=== PATIENT | female | born 1950 | race Caucasian/White ===

== ENCOUNTER 2017-01-14 11:16 | Emergency (ER) | payer BC ==
[~2017-01-14] VITALS: Ht 170.2 cm; Wt 63.0 kg
--- OUTSIDE RECORDS SUMMARY | 2017-01-14 11:20 | XMS REPORT | Summary of Care ---
Author Author Wendy Godfrey M.D. Organization Unknown Address Unknown Phone Unavailable Care Team Providers Care Rn Perioperative Name Role Phone Epifanio Garner, Joseph Unavailable Unavailable Alcides Suarez Unavailable Unavailable Unavailable Unavailable Functional Status Name Dates Details Functional status health issues are not documented Status: Name Dates Details Cognitive status health issues are not documented Status: Problems Name Dates Details Allergic rhinitis due to pollen (477.0, J30.1) Status: Active Other chronic sinusitis (473.8, J32.8) Status: Active GERD (gastroesophageal reflux disease) (530.81, K21.9) Status: Active Moderate persistent asthma, uncomplicated (493.90, J45.40) Status: Active CVID (common 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, D83.9) Status: Active Tremors of nervous system (781.0, R25.1) Status: Active Medications Name Dates Details Gamunex INJ Active Thyroid TABS * Refills: 0 Active Propranolol HCl - 40 MG Oral Tablet * Refills: 0 Active FLUoxetine HCl - 20 MG Oral Capsule * Refills: 0 Active Adderall 10 MG Oral Tablet * Refills: 0 Active Diclofenac Sodium 75 MG Oral Tablet Delayed Release * Refills: 0 Active Lovastatin 20 MG Oral Tablet * Refills: 0 Active BuPROPion HCl ER (XL) 300 MG Oral Tablet Extended Release 24 Hour * Refills: 0 Active SEROquel 100 MG Oral Tablet * Refills: 0 Active Multi Vitamin/Minerals Oral Tablet * Refills: 0 Active [place] 3 CAPS * Refills: 0 Active Glucosamine TABS * Refills: 0 Active Vitamin D CAPS * Refills: 0 Active Probiotic CAPS * Refills: 0 Active Vitamin E 1000 UNIT Oral Capsule * Refills: 0 Active Mucinex 600 MG Oral Tablet Extended Release 12 Hour * Refills: 0 Active Pantoprazole Sodium 20 MG Oral Tablet Delayed Release TAKE ONE TABLET BY MOUTH DAILY 30 MINUTES BEFORE A MEAL * Quantity: 90 Refills: 3 Wendy Godfrey M.D. * Start 09-Dec-2016 Active Allergies and Adverse Reactions Name Dates Details Latex Exam Gloves MISC (Allergy) Status: Active Sulfa Drugs (Allergy) Status: Active Procedures Procedure Dates Details History of Sinus Surgery History of Knee Surgery Left History of Back Surgery History of Shoulder Surgery History of Tonsillectomy IgG, Subclasses(1-4) [id number] Ordered: 09-Dec-2016 Immunization Name Dates Details Immunizations not documented Family History Name Dates Details Family history of eczema (V19.4, Z84.0) Comments: Other Status: Active Name Dates Details Family history of asthma (V17.5, Z82.5) Status: Active Family history of Immunodeficiency (279.3, D84.9) Status: Active Name Dates Details Family history of asthma (V17.5, Z82.5) Status: Active Family history of Immunodeficiency (279.3, D84.9) Status: Active Social History Name Dates Details - Status: Name Dates Details Never smoker Vital Signs Date Test Result Details 09-Dec-2016 14:00 BP Systolic 130 mm[Hg] Status: Comments: Location: ; Position: BP Diastolic 75 mm[Hg] Status: Comments: Location: ; Position: Temperature 97.7 f Status: Comments: Method: Height 66.1 in Status: Weight 132.3 lb Status: Body Mass Index Calculated 21.29 kg/m2 Status: Body Surface Area Calculated 1.68 m2 Status: Results Date Description Value Details 09-Dec-2016 16:43 BASIC METABOLIC PROFILE 1210 SODIUM 135 mmol/L Range: 133-144 POTASSIUM 4.4 mmol/L Range: 3.5-5.1 CHLORIDE 101 mmol/L Range: 98-110 CARBON DIOXIDE 33.5 mmol/L (Above high threshold) Range: 23.0-33.0 ANION GAP 1 mmol/L (Below low threshold) Range: 6-16 BUN 17 mg/dL Range: 7-18 CREATININE, SERUM 0.88 mg/dL Range: 0.55-1.02 EST GFR, >60 ml/min Range: >60 EST GFR, NON-AFR [place] >60 ml/min Range: >60 Comments: EST GFR is reported in ml/min per 1.73 m2 of body surface area. ----- BUN:CREATININE RATIO 19 GLUCOSE 65 mg/dL (Below low threshold) Range: 70-100 CALCIUM 9.1 mg/dL Range: 8.5-10.1 Plan of Care Name Dates Details Planned Observations Planned Goals not documented Planned Encounters Appointment; Provider: Wendy Godfrey M.D. On 10:30 Interventions Provided Medication Changes* Omeprazole 40 MG Oral Capsule Delayed Release - Stop * Pantoprazole Sodium 20 MG Oral Tablet Delayed Release - Start Labs/Procedures/Imaging* IgG, Subclasses(1-4) [id number]; To be Done: 09 Dec 2016 * BASIC METABOLIC PROFILE 1210; Done: Dec 09 2016 2:54PM Instructions Name Dates Details Instructions not documented Encounters Appointment; Wendy Godfrey M.D. Encounter Diagnosis: Problem not documented On 09-Dec-2016 13:30
--- OUTSIDE RECORDS SUMMARY | 2017-01-14 11:20 | XMS REPORT | Summary of Care ---
Author Author Wendy Godfrey M.D. Organization Unknown Address Unknown Phone Unavailable Care Team Providers Care Urban Planning Professor Name Role Phone Epifanio Garner, Joseph Unavailable Unavailable Alcides Suarez Unavailable Unavailable Functional Status Name Dates Details [...] R25.1) Status: Active Medications Name Dates Details Medication not documented Allergies and Adverse Reactions Name Dates Details Sulfa Drugs (Allergy) Status: Active Procedures Procedure Dates Details History of Sinus Surgery History of Knee Surgery Left Procedures not documented Immunization Name Dates Details Immunizations not documented Social History Name Dates Details Unknown if ever smoked Vital Signs Date Test Result Details No Known Vitals to report Results Date Description Value Details Results not documented Plan of Care Name Dates Details Planned Observations Planned Goals not documented Planned Encounters Appointment; Provider: Wendy Godfrey M.D. On 28-Nov-2016 09:30 Instructions Name Dates Details Instructions not documented Encounters Appointment; Wendy Godfrey M.D. Encounter Diagnosis: Problem not documented On 28-Nov-2016 09:30
--- OUTSIDE RECORDS SUMMARY | 2017-01-14 11:20 | XMS REPORT | Summary of Care ---
Author Author Wendy Godfrey M.D. Unknown Address Unknown Phone Unavailable Care Team Providers Care Regulatory Lead Name Role Phone Epifanio Garner, Joseph Unavailable [...] MG Oral Tablet * Refills: 0 Active Omeprazole 40 MG Oral Capsule Delayed Release * Refills: 0 Active Multi Vitamin/Minerals Oral Tablet * Refills: 0 Active [place] 3 CAPS * Refills: 0 Active Glucosamine TABS * Refills: 0 Active Vitamin D CAPS * Refills: 0 Active Probiotic CAPS * Refills: 0 Active Vitamin E 1000 UNIT Oral Capsule * Refills: 0 Active Mucinex 600 MG Oral Tablet Extended Release 12 Hour * Refills: 0 Active Allergies and Adverse Reactions Name Dates Details Latex Exam Gloves MISC (Allergy) Status: Active Sulfa Drugs (Allergy) Status: Active Procedures Procedure Dates Details History of Sinus Surgery History of Knee Surgery Left History of Back Surgery History of Shoulder Surgery History of Tonsillectomy IgG, Subclasses(1-4) [id number] Ordered: 09-Dec-2016 BASIC METABOLIC PROFILE 1210 Ordered: 09-Dec-2016 Immunization Name Dates Details Immunizations [...] m2 Status: Results Date Description Value Details Results not documented Plan of Care Name Dates Details Planned Observations Planned Goals not documented Planned Encounters Appointment; Provider: Wendy Godfrey M.D. On 10:30 Interventions Provided Labs/Procedures/Imaging* BASIC METABOLIC PROFILE 1210; To be Done: 09 Dec 2016 * IgG, Subclasses(1-4) [id number]; To be Done: 09 Dec 2016 Instructions Name Dates Details Instructions not documented Encounters Appointment; Wendy Godfrey M.D. Encounter Diagnosis: Problem not documented On 09-Dec-2016 13:30
--- OUTSIDE RECORDS SUMMARY | 2017-01-14 11:20 | XMS REPORT | Summary of Care ---
Author Author Wendy Godfrey M.D. Unknown Address Unknown Phone Unavailable Care Team Providers Care Loom Overhauler Name Role Phone Epifanio Garner, Joseph Unavailable Unavailable Alcides Suarez Unavailable Unavailable Unavailable Unavailable Functional Status Name Dates Details Functional status health issues are not documented Status: Name Dates Details Cognitive status health issues are not documented Status: Problems Name Dates Details Tremors of nervous system (781.0, R25.1) Status: Active Hypothyroidism (244.9, E03.9) Status: Active Hypertension (401.9, I10) Status: Active Hyperlipidemia (272.4, E78.5) Status: Active Depression (311, F32.9) Status: Active CVID (common 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, 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) Status: Active Mild intermittent asthma without complication (493.90, J45.20) Status: Active Other chronic sinusitis (473.8, J32.8) Status: Active GERD (gastroesophageal reflux disease) (530.81, K21.9) Status: Active Allergic rhinitis due to other allergen (477.8, J30.89) Status: Active Medications Name Dates Details Gamunex [...] Vitamin/Minerals Oral Tablet * Refills: 0 Active [place] 3 CAPS * Refills: 0 Active Glucosamine [...] A MEAL * Quantity: 90 Refills: 3 Lower M.D., Wendy A * Start 09-Dec-2016 Active Allergies and Adverse Reactions Name Dates Details Latex Exam Gloves MISC (Allergy) Status: Active Sulfa Drugs (Allergy) Status: Active Past Medical History Name Dates Details History of pneumonia (V12.61, Z87.01) Status: Resolved History of Recurrent sinusitis (473.9, J32.9) Status: Resolved Procedures Procedure Dates Details History of Sinus Surgery History of Knee Surgery Left History of Back Surgery History of Shoulder Surgery History of Tonsillectomy Procedures not documented Immunization Name Dates Details [...] >60 ml/min Range: >60 EST GFR, NON-AFR [place] >60 ml/min Range: >60 Comments: EST GFR is reported in ml/min per 1.73 m2 of body surface area. ----- BUN:CREATININE RATIO 19 GLUCOSE 65 mg/dL (Below low threshold) Range: 70-100 CALCIUM 9.1 mg/dL Range: 8.5-10.1 11-Dec-2016 12:26 IgG, Subclasses(1-4) [id number] Comments: Testing performed at : [DA] [facility], [address] [address], [place], [address], , Junior Software Developer: JM Porter MDTesting performed at: [ BN] [facility], [address] [place] [address], [address], Phone: , Junior Software Developer: Jeff Orr MD IMMUNOGLOBULIN G, QN, SERUM 1330 mg/dL Range: 700-1600 IGG, SUBCLASS 1 624 mg/dL Range: 422-1292 Comments: Effective January 27, 2017 the reference interval for IgG, Subclass 1 will be changing to: Cord 435 - 1084 0 month - 2 months 218 - 496 3 months - 5 months 143 - 394 6 months - 8 months 190 - 388 9 months - 2 years 286 - 680 3 years - 4 years 281 - 755 5 years - 6 years 306 - 794 7 years - 8 years 321 - 802 9 years - 10 years 309 - 813 11 years - 12 years 311 - 821 13 years - 14 years 304 - 830 15 years - 17 years 310 - 851 18 years - 19 years 325 - 846 >19 years 248 - 810----- IGG, SUBCLASS 2 546 mg/dL Range: 117-747 Comments: Effective January 27, 2017 the reference interval for IgG, Subclass 2 will be changing to: Cord 143 - 453 0 month - 2 months 40 - 167 3 months - 5 months 23 - 147 6 months - 8 months 37 - 60 9 months - 2 years 30 - 327 3 years - 4 years 54 - 271 5 years - 6 years 68 - 327 7 years - 8 years 84 - 355 9 years - 10 years 94 - 389 11 years - 12 years 90 - 450 13 years - 14 years 115 - 445 15 years - 17 years 122 - 505 18 years - 19 years 133 - 509 >19 years 130 - 555----- IGG, SUBCLASS 3 41 mg/dL Range: 41-129 Comments: Effective January 27, 2017 the reference interval for IgG, Subclass 3 will be changing to: Cord 27 - 146 0 month - 2 months 4 - 23 3 months - 5 months 4 - 100 6 months - 8 months 12 - 62 9 months - 2 years 13 - 82 3 years - 4 years 16 - 84 5 years - 6 years 16 - 94 7 years - 8 years 18 - 102 9 years - 10 years 20 - 100 11 years - 12 years 17 - 109 13 years - 14 years 20 - 105 15 years - 17 years 19 - 107 18 years - 19 years 19 - 109 >19 years 15 - 102----- IGG, SUBCLASS 4 26 mg/dL Range: 1-291 Comments: Effective January 27, 2017 the reference interval for IgG, Subclass 4 will be changing to: Cord 1 - 47 0 month - 2 months 1 - 33 3 months - 5 months 1 - 14 6 months - 8 months 1 - 30 9 months - 2 years 1 - 65 3 years - 4 years 1 - 71 5 years - 6 years 2 - 96 7 years - 8 years 3 - 98 9 years - 10 years 4 - 110 11 years - 12 years 4 - 114 13 years - 14 years 4 - 107 15 years - 17 years 3 - 119 18 years - 19 years 3 - 104 >19 years 2 - 96----- Plan of Care Name Dates Details Planned Observations Planned Goals not documented Planned Encounters Appointment; Provider: Wendy Godfrey M.D. On 10:30 Interventions Provided Medication Changes* Omeprazole 40 MG Oral Capsule Delayed Release - Stop * Pantoprazole Sodium 20 MG Oral Tablet Delayed Release - Start Labs/Procedures/Imaging* BASIC METABOLIC PROFILE 1210; Done: Dec 09 2016 2:54PM * IgG, Subclasses(1-4) [id number]; Done: Dec 09 2016 2:54PM Instructions Name Dates Details Instructions not documented Encounters Appointment; Wendy Godfrey M.D. Encounter Diagnosis: Problem not documented On 09-Dec-2016 13:30
[2017-01-14 11:35] VITALS: Ht 170.2 cm; Wt 63.0 kg
--- NOTE | 2017-01-14 11:59 | NUR ---
BRENNEN PASCUAL AT BEDSIDE TO EXAMINE Pt.
[2017-01-14] MEDS ORDERED: LIDOCAINE 1% (10mg/ml) 30ml SDV INFIL ONE (12:00)
[2017-01-14] MEDS ORDERED: TETANUS,DIPHTH,a PERTUS (Tdap) 0.5 ML VIAL IM ONE (12:00)
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
--- NOTE | 2017-01-14 12:10 | NUR ---
MANAGER STERILE--SUTURE T. NOLD AT BEDSIDE TO SUTURE.
[2017-01-14] MEDS ORDERED: CEPH-583 PO (12:34)
[2017-01-14] MEDS ORDERED: DEXT10TA19 PO (12:45)
[2017-01-14] MEDS ORDERED: LOVA20TA3 PO (12:45)
[2017-01-14] MEDS ORDERED: TEMA15CA PO (12:45)
[2017-01-14] MEDS ORDERED: PROP40TA7 PO (12:45)
[2017-01-14] MEDS ORDERED: QUET50TA53 PO (12:48)
[2017-01-14] MEDS ORDERED: LEVO112T4 PO (12:48)
[2017-01-14] MEDS ORDERED: QUET25TA73 PO (12:48)
[2017-01-14] MEDS ORDERED: ESTR42.53 VAGINALLY (12:48)
[2017-01-14] MEDS ORDERED: DICL75TA5 PO (12:48)
[2017-01-14] MEDS ORDERED: FLUO-137 PO (12:51)
[2017-01-14] MEDS ORDERED: OMEP40CA52 PO (12:51)
[2017-01-14] MEDS ORDERED: IMMU20VI IV (12:51)
[2017-01-14] MEDS ORDERED: BUPR300T59 PO (12:51)
[2017-01-14] MEDS ORDERED: MIRA25TA PO (12:51)
[2017-01-14] MEDS ORDERED: GLUC1TAB21 PO (12:53)
[2017-01-14] MEDS ORDERED: CALC-52 PO (12:53)
[2017-01-14] MEDS ORDERED: MULT1TAB69 PO (12:53)
[2017-01-14 12:55] VITALS: BP 107/68; PULSE 66; RESP 16; TEMP 97.1; O2SAT 97
--- NOTE | 2017-01-14 12:55 | NUR ---
DEPART Pt EDUCATION REGARDING WOUND CARE, SUTURE REMOVAL, AND KEFLEX REVIEWED WITH Pt. QUESTIONS ANSWERED, DRESSING APPLIED. RX PROVIDED, Pt LEFT AMBULATORY WITH .
== END 2017-01-14 12:55 | disposition home or self-care (01) ==
LOC: ED 11:16
DX: S81.812A Laceration without foreign body, left lower leg, initial encounter (principal); W45.8XXA Other foreign body or object entering through skin, initial encounter; Y93.55 Activity, bike riding; Y92.009 Unspecified place in unspecified non-institutional (private) residence as the place of occurrence of the external cause; Y99.8 Other external cause status
CPT/HCPCS: 90715